=== PATIENT | male | born 1950 | race Caucasian/White ===

== ENCOUNTER → 2016-10-27 | Outpatient (CLI) | payer BC ==
[2016-10-27 09:41] LABS: BASO % 0.4 %; BASO ABS # 0.03 K/uL (0-0.2); COMPLETE YES; EOS % 6.4 %; HEMATOCRIT 49.9 % (42-52); IG% 0.3 %; LYMPH % 25.2 %; LYMPH ABS # 1.84 K/uL (1.2-3.4); MEAN CELL VOLUME 97.5 fL (80-100); MEAN CORPUSCULAR HEMOGLOBIN 33.6 pg (25-34); MEAN CORPUSCULAR HGB CONC 34.5 g/dl (32-36); MEAN PLATELET VOLUME 10.4 fL (7.4-10.4); MONO % 11.4 %; NEUT % 56.3 %; PLATELET COUNT 185 K/uL (130-400); RED BLOOD COUNT 5.12 M/uL (4.7-6.1)
[2016-10-27 10:21] LABS: BLOOD UREA NITROGEN 26 mg/dl (7-18); GLUCOSE 92 mg/dl (70-99)
[2016-10-27 10:22] LABS: ALT/SGPT 31 U/L (12-78); AST/SGOT 20 U/L (15-37); BUN/CREATININE RATIO 23.6 (10-20); CALCIUM 8.6 mg/dl (8.5-10.1); CARBON DIOXIDE 31 mmol/L (21-32); CHLORIDE 106 mmol/L (98-107); POTASSIUM 4.1 mmol/L (3.5-5.1); SODIUM 142 mmol/L (136-145)
== END | disposition home or self-care (01) ==
LOC: C.LAB 08:32
DX: M19.90 Unspecified osteoarthritis, unspecified site (principal); I10 Essential (primary) hypertension

== ENCOUNTER → 2017-05-07 | Outpatient (CLI) | payer BC ==
[2017-05-07 12:31] LABS: BLOOD UREA NITROGEN 25 mg/dl (7-18); CALCIUM 8.8 mg/dl (8.5-10.1); CARBON DIOXIDE 26 mmol/L (21-32); CREATININE 1.14 mg/dl (0.60-1.40); GLUCOSE 114 mg/dl (70-99); POTASSIUM 4.1 mmol/L (3.5-5.1); SODIUM 136 mmol/L (136-145)
--- NOTE | 2017-06-04 13:38 | CODING QUERY NO DIAGNOSIS ---
TREATMENT RENDERED WITHOUT A DIAGNOSIS To promote full compliance with coding requirements relating to patient care, physician participation is requested in all cases of pipe fitter apprentice uncertainty. Please assist us with providing a diagnosis/symptom for the test(s) below: A diagnosis/symptom was not documented on your Order. A valid diagnosis/symptom is required to bill all insurances. Please remember that we are unable to code a diagnosis of rule out, probable, possible, questionable, or suspected. Tests that require a diagnosis: * PARTIAL RENAL PROFILE DIAGNOSIS: * PSA DIAGNOSIS: Provider Signature: Date: Thank you Genesis M[facility] [employer] video Information Management Once completed, please kindly fax back to [phone] For questions please call [phone]
== END | disposition home or self-care (01) ==
LOC: C.LAB 09:40
DX: Z01.89 Encounter for other specified special examinations (principal)

== ENCOUNTER → 2017-06-29 | Outpatient (CLI) | payer OTHER ==
[2017-06-29 16:41] LABS: BLOOD UREA NITROGEN 23 mg/dl (7-18); CREATININE 1.06 mg/dl (0.60-1.40)
== END | disposition home or self-care (01) ==
LOC: C.LABBC 13:01
PROVIDERS: ATTEND Psychiatry & Neurology Neurology
DX: Z00.00 Encounter for general adult medical examination without abnormal findings (principal)

== ENCOUNTER → 2017-07-03 | Outpatient (CLI) | payer OTHER ==
[~2017-07-03] MED LIST: GADAVIST IV PRN
--- NOTE | 2017-07-03 12:17 | DIAGNOSTIC IMAGING REPORT ---
BRAIN COMBO CLINICAL HISTORY: CAVERNOUS HEMANGIOMA OF THE BRAIN lesion COMPARISON STUDY: 10/06/2014 TECHNIQUE: Utilizing a 1.5 Thea magnet and dedicated coil, multiplanar, multiecho imaging of the brain was performed pre and postcontrast administration. IV administration of 8 mL of Gadavist contrast was uneventful. FINDINGS: Study is similar compared to the prior study. 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 It is shown no significant change in size and signal character or enhancement characteristics. Signal characteristics of the cerebellar as well as cerebral hemispheres otherwise indicate minimal chronic small vessel change of aging. There is minimal age-related atrophy. 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 There is no significant postcontrast enhancement area in the ventricular system is midline. IMPRESSION: Stable exam with no change from the prior study. 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 The above report was generated using voice recognition software. It may contain grammatical, syntax or spelling errors. Electronically signed by: Eh Goncalves M.D. 07/03/2017 12:15 PM Dictated Date/Time: 07/03/2017 12:10 PM
== END | disposition home or self-care (01) ==
LOC: C.MRIBC 10:48
PROVIDERS: ATTEND Psychiatry & Neurology Neurology
DX: D18.02 Hemangioma of intracranial structures (principal)

== ENCOUNTER → 2017-07-03 | Outpatient (CLI) | payer OTHER ==
--- NOTE | 2017-07-03 15:10 | ECHOCARDIOGRAM REPORT ---
*NOTICE TO RECEIVING CONSTITUTION PARTY AGENCY This information is strictly Confidential and protected under [place] law. [place] law prohibits you from making any further disclosure of this information unless further disclosure is expressly permitted by the written consent of the person to whom it pertains or is authorized by law. A general authorization for the release of medical or other information is not sufficient for this purpose. Hospital accepts no responsibility if the information is made available to any other person, INCLUDING THE PATIENT. Interpretation Summary * Name: SIM GARCIA Study Date: 07/03/2017 01:42 PM BP: 124/80 mmHg * Patient Location: [facility] HR: 90 * : 1950 (M/d/yyyy) Gender: Male Height: 69 in * Age: 66 yrs Ethnicity: [place] Weight: 210 lb * Ordering Physician: Sim Molina * Referring Physician: Sim Molina D.O. * Performed By: Tasha Orlando RDCS * * Reason For Study: EXERTIONAL DYSPNEA, HX DILATED CARDIOMYOPATHY * BSA: 2.1 m2 * -- Conclusions -- * Left ventricular systolic function is normal. * No regional wall motion abnormalities noted. * Ejection Fraction = 55-60%. * Grade I diastolic dysfunction, (abnormal relaxation pattern). * There is mild mitral regurgitation. Procedure Details * A complete two-dimensional transthoracic echocardiogram was performed (2D, M-mode, Doppler and color flow Doppler). Left Ventricle * The left ventricle is normal in size. * There is normal left ventricular wall thickness. * Left ventricular systolic function is normal. * Ejection Fraction = 55-60%. * No regional wall motion abnormalities noted. Right Ventricle * The right ventricle is normal size. * The right ventricular systolic function is normal as assessed by tricuspid annular plane systolic excursion (TAPSE) (normal >1.5 cm). Atria * The left atrial size is normal. * Right atrial size is normal. * There is no evidence of atrial septal defect, but resolution does not allow assessment for a patent foramen ovale. Mitral Valve * The mitral valve anatomy is normal. * There is no mitral valve stenosis. * There is mild mitral regurgitation. Tricuspid Valve * The tricuspid valve anatomy is normal. * Tricuspid stenosis is absent. Aortic Valve * The aortic valve is normal in structure and function. * No hemodynamically significant valvular aortic stenosis. * No aortic regurgitation is present. Pulmonic Valve * The pulmonary valve is not well seen, but the Doppler examination is normal without significant regurgitation or stenosis. Great Vessels * The aortic root is normal size. * The pulmonary is not well visualized. Pericardium/Pleural * There is no pericardial effusion. Great Vessels * Normal inferior vena cava size and collapsability with sniff indicates a normal right atrial pressure of 3 mmHg Left Ventricular Diastolic Function * Grade I diastolic dysfunction, (abnormal relaxation pattern). MMode 2D Measurements and Calculations IVSd 1.1 cm IVSs 1.3 cm LVIDd 4.6 cm LVIDs 3.1 cm LVPWd 1.1 cm LVPWs 1.4 cm IVS/LVPW 0.99 FS 33.0 % EDV(Teich) 95.9 ml ESV(Teich) 36.7 ml EF(Teich) 61.7 % EDV(cubed) 95.5 ml ESV(cubed) 28.7 ml EF(cubed) 70.0 % % IVS thick 23.7 % % LVPW thick 26.7 % LV mass(C)d 170.7 grams LV mass(C)dI 81.0 grams/m\S\2 LV mass(C)s 132.4 grams LV mass(C)sI 62.8 grams/m\S\2 SV(Teich) 59.1 ml SI(Teich) 28.0 ml/m\S\2 SV(cubed) 66.8 ml SI(cubed) 31.7 ml/m\S\2 Ao root diam 3.4 cm Ao root area 9.0 cm\S\2 LA dimension 3.0 cm LA/Ao 0.87 LVAd ap4 28.4 cm\S\2 LVLd ap4 8.9 cm EDV(MOD-sp4) 75.6 ml EDV(sp4-el) 76.5 ml LVAs ap4 16.3 cm\S\2 LVLs ap4 7.5 cm ESV(MOD-sp4) 33.0 ml ESV(sp4-el) 30.3 ml EF(MOD-sp4) 56.4 % EF(sp4-el) 60.4 % LVAd ap2 31.0 cm\S\2 LVLd ap2 9.1 cm EDV(MOD-sp2) 85.0 ml EDV(sp2-el) 89.1 ml LVAs ap2 17.3 cm\S\2 LVLs ap2 7.2 cm ESV(MOD-sp2) 37.2 ml ESV(sp2-el) 35.3 ml EF(MOD-sp2) 56.3 % EF(sp2-el) 60.4 % LVLd %diff 2.3 % EDV(MOD-bp) 81.5 ml LVLs %diff -3.47 % ESV(MOD-bp) 35.3 ml EF(MOD-bp) 56.7 % SV(MOD-sp4) 42.6 ml SI(MOD-sp4) 20.2 ml/m\S\2 SV(MOD-sp2) 47.8 ml SI(MOD-sp2) 22.7 ml/m\S\2 SV(MOD-bp) 46.2 ml SI(MOD-bp) 21.9 ml/m\S\2 SV(sp4-el) 46.2 ml SI(sp4-el) 21.9 ml/m\S\2 SV(sp2-el) 53.8 ml SI(sp2-el) 25.5 ml/m\S\2 Doppler Measurements and Calculations MV E max july 67.9 cm/sec MV A max july 96.0 cm/sec MV E/A 0.71 MV dec time 0.21 sec Ao V2 max 134.8 cm/sec Ao max PG 7.3 mmHg Ao max PG (full) 3.9 mmHg LV V1 max PG 3.4 mmHg LV V1 max 92.2 cm/sec
== END | disposition home or self-care (01) ==
LOC: C.CPL 13:36
DX: R06.09 Other forms of dyspnea (principal); I42.0 Dilated cardiomyopathy; I34.0 Nonrheumatic mitral (valve) insufficiency

== ENCOUNTER 2022-01-31 05:09 | Observation (INO) ==
--- NOTE | 2021-12-21 13:36 | PAT Medication Instructions ---
Medication Instructions Date of Service December 21, 2021 Home Medications Medication Instructions Recorded Nigaht Kaur #1 ea 05/09/21 acetaminophen 500 mg capsule 1,000 mg PO TID Pain 30 days #180 06/20/21 caps amoxicillin 500 mg tablet 2,000 mg PO ONCE #4 tabs 10/18/21 amitriptyline 50 mg tablet 50 mg PO QPM levothyroxine 100 mcg capsule 100 mcg PO QAM lisinopril 20 mg tablet 20 mg PO QAM lysine 600 mg tablet 600 mg PO QAM omega-3 acid ethyl esters 1 gram capsule 1 cap PO QAM flaxseed oil 1,000 mg capsule 1,000 mg PO QAM glucosamine sulfate 500 mg tablet (Glucosamine) 500 mg PO QAM twxqnctblyje-fmoyqagc-yloaie tablet 1 tab PO QDL auniqtwzhj-ertgkpwym-fboirdu 30 mg-1 mg-20 mcg/mL intracavernosal soln 0.1 - 1 ml intra-cavernosal DAILY PRN Impotence, organic acetaminophen 500 mg capsule 1,000 mg PO TID Pain amoxicillin 500 mg tablet 2,000 mg PO ONCE Continue as directed amoxicillin 500 mg tablet 2,000 mg PO ONCE (prior to dental procedures) ASK your prescriber and surgeon amitriptyline 50 mg tablet 50 mg PO QPM STOP taking 2 weeks before surgery (or as soon as possible if surgery is within 2 weeks) lysine 600 mg tablet 600 mg PO QAM omega-3 acid ethyl esters 1 gram capsule 1 cap PO QAM flaxseed oil 1,000 mg capsule 1,000 mg PO QAM glucosamine sulfate 500 mg tablet (Glucosamine) 500 mg PO QAM rvvnzxiqpewy-gjeftzsj-uaulye tablet 1 tab PO QDL DO NOT take the morning of surgery lisinopril 20 mg tablet 20 mg PO QAM Take morning of surgery With a small sip of water, OTHERWISE NOTHING TO EAT OR DRINK AFTER MIDNIGHT: levothyroxine 100 mcg capsule 100 mcg PO QAM acetaminophen 500 mg capsule 1,000 mg PO TID Pain (if needed) Take evening before surgery acetaminophen 500 mg capsule 1,000 mg PO TID Pain (if needed) Other Notes Stop 72 hours prior to surgery (per Dr. Elizabeth recommendations) mtkjkztgqa-pibbiamlf-tomnvoe 30 mg-1 mg-20 mcg/mL intracavernosal soln 0.1 - 1 ml intra-cavernosal DAILY PRN Impotence, organic If you have any questions please call us at [phone] or [phone] or [phone] or [phone]
--- NOTE | 2021-12-23 09:45 | Anesthesiology Consultation ---
Date of Service December 23, 2021 Assessment & Plan (1) Encounter for pre-operative examination: - COVID screening: Per assessment on 12/23: No known COVID-19 positive contacts or current COVID-19 related symptoms. Patient vaccinated. Travel screen- returned from second home in [place] (often travels back and forth)- stayed at private residence 12/22. No large gatherings/groups. Uses PPE. Surgeon arranging preop COVID testing. Awaiting results. - S/P Left TKA (06/22/21): SAB x2 attempts (L3/4) + PNB at [facility] (see anesthesia progress note for further details). Done through outpatient joint pathway- did will postoperatively per pt. - Cavernous hemangioma: Left pontine cavernous hemangioma dx 2008. [place] [facility] [place]. Per last note (07/23/17): "Stable, incidental, left pontine cavernous hemangioma. No abnormalities on neurological examination. I am unable to sign off on scuba diving forms as previously requested. Patient comfortable with this issue. Additional or serial neuro imaging is not absolutely required. However, if the patient were to experience acute neurological symptoms such as weakness of the right leg, or cranial neuropathy, I would recommend obtaining an up-to-date brain MRI at that time. Cavernous hemangiomas can sometimes be treated with gamma knife. However, such treatments are reserved for symptomatic lesions." F/U PRN recommended. - Reviewed PMHX/anesthesia records with Dr. Hwang (including hx cavernous hemangioma). He feels that patient acceptable risk to proceed with surgery as scheduled (he states he would likely use SAB from his perspective but ultimate anesthetic type at anesthesiologist discretion AM DOS). He also feels patient acceptable for outpatient joint pathway (this was done without issue for patient's 05/2021 Left TKA). Chart Review Chart Review: Acceptable Risk for Surgery (pending evaluation AM DOS) and Patient seen in Pre Admission Testing Teaching & Discussion Pre-Anesthesia Teaching/Discussion Notes: Instructed NPO after midnight before surgery,except medications with 15 cc of water. Medication instructions provided according to the PAT guidelines. History Surgery Operation Date: 01/31/22 08:50 Proposed Procedures p Right Total Knee Arthroplasty - Leon Milton MD Height/Weight Height: 5 ft 9 in Weight: 94.3 kg Allergies Allergy/AdvReac Type Severity Reaction Status Date / Time No Known Allergies Allergy Unknown Verified 12/21/21 10:41 Medications Home Medications Medication Instructions Recorded Confirmed Last Taken amitriptyline 50 mg tablet 50 mg PO QPM 08/06/19 12/21/21 06/21/21 21:30 levothyroxine 100 mcg capsule 100 mcg PO QAM 08/06/19 12/21/21 06/22/21 05:15 lisinopril 20 mg tablet 20 mg PO QAM 08/06/19 12/21/21 06/21/21 08:00 lysine 600 mg tablet 600 mg PO QAM 09/17/19 12/21/21 06/21/21 08:00 omega-3 acid ethyl esters 1 gram 1 cap PO QAM 09/17/19 12/21/21 06/08/21 08:00 capsule flaxseed oil 1,000 mg capsule 1,000 mg PO QAM 04/18/21 12/21/21 06/08/21 08:00 glucosamine sulfate 500 mg tablet 500 mg PO QAM 04/18/21 12/21/21 06/08/21 08:00 (Glucosamine) aybgzmwfwepy-outpnngt-lbdwko tablet 1 tab PO QDL 04/18/21 12/21/21 06/08/21 08:00 goddcnhkmw-tpfiiqnkp-vuoabbd 30 0.1 - 1 ml intra-cavernosal DAILY 04/18/21 12/21/21 03/28/21 mg-1 mg-20 mcg/mL intracavernosal PRN Impotence, organic soln Wheeled Walker #1 ea 05/09/21 05/09/21 Unknown acetaminophen 500 mg capsule 1,000 mg PO TID Pain 30 days #180 06/20/21 12/21/21 Unknown caps amoxicillin 500 mg tablet 2,000 mg PO ONCE #4 tabs 10/18/21 12/21/21 Unknown Past Medical History Medical History (Updated 12/23/21 @ 14:10 by Jackie Crump) Bilateral primary osteoarthritis of knee Cavernous hemangioma Left pontine cavernous hemangioma dx 2008. F/U PR[facility] (2018) Grinding teeth + beach lifeguard History of prostate cancer Dx 2004 s/p prostatectomy Hx of sarcoidosis Age 20s- presented with peripheral edema, severe myalgia and arthralgias- Previously seen by Dr. Peppy annually in the past. Went into remission several years later, no recent issues Hypertension Controlled Hypothyroidism s/p thyroidectomy d/t hyperthyroidism Exercise / Class Metabolic Activity II 4-5 Yardwork/Stairs/Walk up hill Past Family History Family History Father Diabetes Heart disease Mother Diabetes Dementia Hypertension Other No family history of adverse response to anesthesia Past Surgical History Surgical History History of colonoscopy History of endoscopy History of lymph node excision S/P prostatectomy S/P thyroidectomy partial S/P vasectomy Status post left knee replacement Left TKA (06/22/21): SAB x2 attempts (L3/4) + PNB at [facility] (see anesthesia progress note for further details) Past Anesthesia History No Family Hx of Anesthesia Complications and Other (Post-op constipation) History of PONV No Hx of PONV and Hx of Motion Sickness (+ Boats) Social History Smoking Status: Never smoker Do You Dip or Chew Tobacco: No Hx Alcohol Use: Yes Alcohol type: wine alcohol intake frequency: a few times a week Hx Substance Use: No substance use type: does not use Review of Systems Patient denies chest pain, shortness of breath, dyspnea on exertion, fever, chills, cough, wheezing, palpitations. Physical Exam Vital Signs VITALS BP 128/80 P 95 TEMP WNL SP02 96%RA RESP 16 PHYSICAL Full cervical extension range of motion. Full TMJ range of motion. TMD 3 finger breaths Mallampati Score 2 Dentition: intact Lungs: clear throughout to auscultation Cardiac: regular rate and rhythm, no murmurs noted Spine: normal Carotid arteries: negative bruit Extremities: no edema Lab Results Anesthesia Preop Results Results Anesthesia Widget: WBC 5.93 K/ul (4.8-10.8) 12/23/21 Hgb 15.8 g/dl (14.0-18.0) 12/23/21 Hct 45.9 % (40.1-51.0) 12/23/21 Plt 183 K/uL (130-400) 12/23/21 Na 139 mmol/L (136-145) 12/23/21 K 4.4 mmol/L (3.5-5.1) 12/23/21 Cl 105 mmol/L (98-107) 12/23/21 CO2 27 mmol/L (21-32) 12/23/21 BUN 25 mg/dl (6-23) H 12/23/21 Creat 1.05 mg/dl (0.6-1.4) 12/23/21 Glucose Level 106 mg/dl (70-99(Fasting)) H 12/23/21 PT 10.9 Seconds (9.0-12.0) 12/23/21 PTT 24.8 Seconds (21.0-31.0) 12/23/21 INR 1.0 (0.9-1.1) 12/23/21 HA1c 6.3 % (4.5-5.6) H 12/23/21 Blood Type O Positive 12/23/21 Antibody Screen NEGATIVE 12/23/21 Testing Electrocardiogram Date: 05/09/21 Findings: + NSR @ (84) Chest X-Ray Date: 05/09/21 Findings: + NAD Echocardiogram Date: 07/03/17 EF 55-60%. No regional motion abnormality. Grade 1 diastolic dysfunction. Mild MR.
--- NOTE | 2022-01-26 17:27 | History and Physical Report ---
DATE OF ADMISSION: 01/31/2022 CHIEF COMPLAINT: Persistent right knee pain, discomfort and stiffness. HISTORY OF PRESENT ILLNESS: The patient is a 71-year-old gentleman, now a little over 7 months out f rom a left knee replacement, presents for treatment of his right knee. He has got a long history of knee pain and describes it has gotten worse over time. He has been through extensive conservative tr eatment in the past, which has become less successful. The left knee is doing well. He continues to be limited by right knee pain. It is global pain. The more he is up and on it, the more it hurts. He would like to have this fixed. He did his left knee as an outpatient and would like to do the sa me this time. PAST MEDICAL HISTORY: Significant for, 1. Hypertension. 2. Hypothyroidism. 3. Occasional irregular heartbeat with a negative workup. 4. Prostate cancer. PAST SURGICAL HISTORY: Includes, 1. Sarcoid surgery. 2. Thyroid removal. 3. Prostate removal. 4. Left knee replacement done on 06/22/2021. ALLERGIES: None. CURRENT MEDICATIONS: Include, 1. Amitriptyline. 2. Glucosamine. 3. Levothyroxine. 4. Lisinopril. 5. Lysine. 6. Meloxicam. 7. Multivitamin. 8. Naproxen. 9. Gateway-3. 10. Flaxseed oil. SOCIAL HISTORY: A 71-year-old male. He is single and lives alone. He has an Airbnb that he is plan francis to recovery in. FAMILY HISTORY: Noncontributory. REVIEW OF SYSTEMS: Negative for diabetes. No history of DVT or PE. Apparently has had some irregul ar heartbeats, but a negative cardiac workup. No bleeding problems. PHYSICAL EXAMINATION: GENERAL: Shows a pleasant middle-aged male. Looks to be in good health. HEENT: Benign. NECK: Supple. No lymphadenopathy. LUNGS: Clear to auscultation. HEART: Regular rate and rhythm. ABDOMEN: Soft, nontender, nondistended. EXTREMITIES: Grossly neurovascularly intact except as follows: Examination of the right knee reveal s a patient who ambulates with a slight bit of a limp. He has got varus alignment to his knee, a bit of a varus thrust with weightbearing. He is tender medially with some bony hypertrophy. Range of m otion is 5-120. No instability. Examination of the left knee reveals a well-healed incision. Range of motion is 0-120. Good straight leg raise. Anatomic alignment. X-RAYS: Four view series of his right knee were reviewed. It shows advanced right knee DJD. He has got complete loss of his medial joint space. He has got subchondral sclerosis. He has got cystic c hanges, particularly on the medial side of his knee. The left knee replacement looks to be in good p osition. ASSESSMENT: A 71-year-old gentleman 7+ months out from a left knee replacement, with advanced right knee arthritis. He has failed conservative treatment. He would like to proceed with right knee repl acement. He does have some other additional comorbidities including hypertension, hypothyroidism and prostate cancer, but did well as an outpatient the last time. PLAN: We will proceed with right knee replacement. The risks and benefits of this procedure were ex plained to the patient and include but not limited to DVT, PE, , infection, neurological injury, vascular injury, bleeding problem, pain, limited range of motion, stiffness, failure to relieve his symptoms, etc. The patient understands and desires to proceed. Informed consent was obtained. He does have local Airbnb in [place], I believe, and he is going to recover there. His daughter is going to come and assist in his care. He is hoping to do this as an outpatient. Job ID: [id number]
[2022-01-31] MEDS ORDERED: BUPIVACAINE LIPOSOME/PF 266 MG, BUPIVACAINE/EPINEPHRINE 50 ML, SODIUM CHLORIDE 0.9% 30 ... INFIL SCH (06:00)
[2022-01-31] MEDS ORDERED: CeleBREX 200 MG CAP PO SCH (06:00)
[2022-01-31] MEDS ORDERED: Scopolamine 1 MG TDSY TD SCH (06:00)
[2022-01-31] MEDS ORDERED: ceFAZolin 2000MG 2,000 MG/15 ML SYR IV SCH (06:00)
[2022-01-31] MEDS ORDERED: FAMOTIDINE 20 MG TAB PO SCH (06:00)
[2022-01-31] MEDS ORDERED: ACETAMINOPHEN 500 MG TAB PO SCH (06:00)
[2022-01-31] MEDS ORDERED: TRANEXAMIC ACID 1,000 MG **IV Intra-op IV SCH (06:00)
[2022-01-31] MEDS ORDERED: LR 60ML/HR IV SCH (06:00)
[2022-01-31] MEDS ORDERED: LR 15ML/HR IV SCH (06:00)
[2022-01-31] MEDS ORDERED: METOCLOPRAMIDE HCL 10 MG TABLET PO SCH (06:00)
[2022-01-31] MEDS ORDERED: MIDAZOLAM HCL 1 MG/ML 2ML VIAL ONE (06:24)
[2022-01-31] MEDS ORDERED: MEPIVACAINE HCL 1.5% 30 ML VIAL ONE (06:24)
[2022-01-31] MEDS ORDERED: EPINEPHrine INJ 1 MG/ML AMP ONE (06:24)
[2022-01-31] MEDS ORDERED: ROPIVACAINE 0.5% 5 MG/ML 30 ML VIAL ONE (06:25)
[2022-01-31] MEDS ORDERED: BUPIVACAINE/EPINEPHRINE 0.25% 1:200,000 30 ML VIAL ONE (06:35)
[2022-01-31] MEDS ORDERED: BUPIVACAINE LIPOSOME 1.3% 266 MG/20 ML VIAL ONE (06:35)
[2022-01-31] MEDS ORDERED: SODIUM CHLORIDE 0.9% PF 50 ML VIAL ONE (06:35)
--- NOTE | 2022-01-31 06:50 | History & Physical Bridge Note ---
Date of Service January 31, 2022 History & Physical Bridge Note I have examined the patient, reviewed the History & Physical and in the interval since the performance of the History & Physical I have noted the following changes of clinical significance: no changes noted
[2022-01-31] MEDS ORDERED: KETOROLAC 30 MG/ML VIAL ONE (07:10)
[2022-01-31] MEDS ORDERED: PROPOFOL IV EMULSION 10 MG/ML 20 ML VIAL IV ONE (07:10)
[2022-01-31] MEDS ORDERED: ONDANSETRON INJ 2 MG/ML 2 ML VIAL ONE (07:11)
[2022-01-31] MEDS ORDERED: PHENYLEPHRINE HCL 10 MG/ML VIAL ONE (07:28)
[2022-01-31] MEDS ORDERED: PHENYLEPHRINE 100MCG/ML 5ML SYR ONE (07:28)
[2022-01-31] MEDS ORDERED: PROMETHAZINE HCL 12.5 MG in SODIUM CHLORIDE 0.9% 50 ML IV PRN (07:36)
[2022-01-31] MEDS ORDERED: LABETALOL HCL IV 5 MG/ML 20ML IV PRN (07:36)
[2022-01-31] MEDS ORDERED: ONDANSETRON INJ 2 MG/ML 2 ML VIAL IV PRN (07:36)
[2022-01-31] MEDS ORDERED: NALOXONE HCL 0.4 MG/1 ML VIAL/CARP IV PRN ×2 (07:36→17:48)
[2022-01-31] MEDS ORDERED: fentaNYL citrate 100 MCG/2 ML VIAL IV PRN (07:36)
[2022-01-31] MEDS ORDERED: HYDROmorphone INJ 1 MG/ML SYRINGE IV PRN (07:36)
[2022-01-31] MEDS ORDERED: FLUMAZENIL 0.1 MG/1 ML 10 ML VIAL IV PRN (07:36)
[2022-01-31] MEDS ORDERED: oxyCODONE/ACETAMINOPHEN 5mg/325mg TAB PO PRN (08:42)
--- NOTE | 2022-01-31 08:54 | Operative Report ---
PG Post Operative Report Pre & Post Diagnosis Operation Date: 01/31/22 07:00 Pre-Op Diagnosis: Right Knee Advanced Degenerative Joint Disease Post-Op Diagnosis: Right Knee Advanced Degenerative Joint Disease I identified the patient and participated in the time-out.: Yes Procedure Operation Date: 01/31/22 07:00 Actual Procedures p Right Total Knee Arthroplasty(Right) - Leon Milton MD Surgeon Leon Milton MD [employer] Worker Torrey Villarreal PA-C Estimated Blood Loss 50 Findings Consistent with Post-Op Diagnosis Operative findings were advanced right knee DJD. Extensive grade 4 [id number] disease and eburnation of the entire medial compartment. Fixed varus deformity to his knee. His ACL was intact but he had posterior medial wear consistent with ACL insufficiency. Moderate-sized joint effusion. Very varus proximal tibia. Fluids 1600 cc Specimens Right knee sent for pathology Drains None Anesthesia Type Spinal MAC Complications none Disposition Accompanied Patient To Recovery: No Indications Patient is a 71-year-old gentleman said a long history of bilateral knee pain discomfort describes gotten worse over the past several years. He underwent a left knee replacement back in May and is done well from this. He is recovered nicely but limited by right knee pain. X-rays show advanced knee arthritis. He elected proceed with surgical management. Description of Procedure Operative implants consist of: 1 Biomet Vanguard size 67.5 right posterior stabilized femoral component. 2. Biomet size 79 tibial tray. 3. 10 mm posterior stabilized polyethylene insert. 4. 31 x 8 all Paller patella. The patient was taken to the operating, identified, placed on the operating table supine position protectors were properly padded. IV antibiotics tried by anesthesia team. A spinal anesthetic and been implemented holding area along with an abductor canal block. A right thigh tent was then placed. The right lower extremities and prepped and draped in usual sterile fashion. The right leg was elevated exsanguinated with use of an Esmarch in terms playset 300 mmHg. An anterior approach of the right knee was then performed to longitudinal incision centered over the patella. Sharp dissection Through subcutaneous tissues down to the extensor mechanism. A medial parapatellar arthrotomy incision was made. Some subperiosteal dissection was carried out medially. The fat pad was resected from Neath patella tendon. Lateral patellofemoral ligament was released. Patella subluxated laterally and the knee was flexed. The osteophytes were taken off distal femur. The ACL and PCL were then released in the distal femur the tibia subluxated anteriorly. The external treatment line jig was then placed in the interface the tibia and adjusted 14 mm medially. Proximal tibial cut was made essentially flush with the most deficient aspect of the posterior medial tibial plateau. The tibia was then sized to a size 79. Some osteophytes taken off medial and posterior medially. Attention drawn the femur. The distal femur was entered with a sharp drill followed by the intramedullary brianna. The IM canal was suction. A right 6 degree valgus cutting guide was placed. This femoral cutting block was pinned in place. Distal femoral cut was made to take an additional 3 mm bone off distal femur. The femur was then sized to a size 67.5. The AP cutting block was pinned parallel to the epicondylar axis which was 4 degrees of external rotation. Anterior cut, anterior chamfer, posterior cut, posterior chamfer cuts were made. The box cutting guide was placed in just slight lateral and the box cut was made. The knee was flexed. The remnants of the medial and lateral menisci were excised. The osteophytes were taken off the posterior aspect the femur. Trial femoral component was placed. The tibial tray was pinned in maximum external rotation and the drill and stem punch used to create the defect in the proximal tibia for the tibial tray. Knee was then trialed and 10 mm insert fit most appropriately. Attention drawn the patella. The patella was cleaned of all soft tissues. Patella thickness measured 23 mm in thickness was cut down to 15. Was sized to a size 31 patella. The lug holes were drilled for the 31 patella. The lateral osteophyte was removed. Patella button was placed. Knee was taken through range of motion patella tracked nicely with no thumbs test. Attention drawn to placing permanent components. Nupathe all trial components were removed. Bone plug was placed in the distal femur limit blood loss. A double batch Palacos G cement was mixed. A Biomet Vanguard size 67.5 right posterior stabilized femoral component, size 79 tibial tray, a 10 mm posterior stabilized polyethylene insert, and a 31 x 8 all Paller patella then cemented in place. Knee was brought out in full extension total cement hardened. Final cement check was then performed. Pericapsular tissues were injected with total of 100 cc of combination of 20 cc of Exparel, 30 cc normal saline, 50 cc of quarter percent Marcaine with epinephrine. Patient did receive 1 g tranexamic acid. The tourniquet was let down for turn time 58 minutes. Hemostasis reduced electrocautery. Extensor mechanism then closed with combination 1 PDS suture #1 Vicryl suture in a [id number] fashion. Extensor mechanism checked found to be intact. The subcutaneous tissue was then closed with 2 Dexon suture in buried interrupted fashion skin was closed skin thaddeus. Leg was then cleaned and dried a sterile dressing was Xeroform, 4 x 4's, sterile cast padding, Isidro bandage were applied. Patient then transferred to the recovery room in stable condition. Patient tolerated procedure well and there were no complications. Torrey Villarreal, my physician assistant professor of archaeology, was present for the entire procedure. His assistance was essential and required for appropriate patient positioning, prepping and draping, surgical exposure, performing the technical details of the operation, placement the implants, closure of the wound, and placement of the sterile bandage. I attest to the content of the Intraoperative Record and any orders documented therein. Any exceptions are noted below.
--- NOTE | 2022-01-31 09:09 | XRay Report ---
RIGHT KNEE 2 VIEWS History: Right total knee arthroplasty. Degenerative arthritis. Postop. FINDINGS: The patient is status post a right total knee arthroplasty. The hardware is intact. No frac ture or dislocation. Skin thaddeus are in place. IMPRESSION: Right total knee arthroplasty. No evidence for hardware complication. ACT 112: Negative or not required by law. Electronically signed by: Camden Gonzalez M.D. 01/31/2022 9:06 AM
--- NOTE | 2022-01-31 09:11 | Anesthesiology Progress Note ---
Date of Service January 31, 2022 Anesthesia Post Procedure Vital Signs Vital Signs: Temp Pulse Pulse Resp BP Pulse Ox O2 Del Method 01/31/22 09:05 36.3 C L 102 H 14 129/72 97 Room Air 01/31/22 08:55 100 H 21 102/56 L 98 Oxymask 01/31/22 08:47 36.7 C 101 H 14 122/66 98 Oxymask 01/31/22 05:43 37.2 C 94 H 18 138/88 98 Room Air O2 Flow Rate 01/31/22 09:05 01/31/22 08:55 9 01/31/22 08:47 9 01/31/22 05:43 Pain Intensity Right Knee: Pain Intensity: 0 Transfer of Care Handoff Completed per policy Notes Mental Status: alert / awake / arousable Patient Amnestic to Procedure: Yes Nausea / Vomiting: adequately controlled Pain: adequately controlled Airway Patency, RR, SpO2: stable & adequate BP & HR: stable & adequate Hydration State: stable & adequate Neuraxial Anesthesia: was administered and sensory block is resolving Anesthetic Complications: no major complications apparent
[2022-01-31] MEDS ORDERED: LIDOCAINE 2% MPF LOCAL 5 ML VIAL INFIL ONE (09:19)
[2022-01-31] MEDS ORDERED: ceFAZolin 2000MG 2,000 MG/15 ML SYR IV ONE (10:00)
[2022-01-31] MEDS ORDERED: HYDROmorphone INJ 0.5 MG/0.5 ML SYR IV PRN (17:48)
[2022-01-31] MEDS ORDERED: MAGNESIUM HYDROXIDE SUSP 30 ML UDC PO PRN (17:48)
[2022-01-31] MEDS ORDERED: diphenhydrAMINE Capsule 25 MG CAP PO PRN (17:48)
[2022-01-31] MEDS ORDERED: oxyCODONE HCL IR 5 MG TAB (IMMEDIATE RELEASE) PO PRN (17:48)
[2022-01-31] MEDS ORDERED: ONDANSETRON 4 MG OD TAB PO PRN (18:05)
[2022-01-31] MEDS: Scopolamine CHECK PATCH PLACEMENT SCH ×2 (18:08→23:46)
[2022-01-31] MEDS: SODIUM CHLORIDE 0.9% 1000ML 1,000 ML IV SCH (18:13)
[2022-01-31] MEDS: KETOROLAC TROMETHAMINE 15 MG/ML VIAL IV SCH (18:45)
[2022-01-31] MEDS: ceFAZolin 2000MG 2,000 MG/15 ML SYR IV SCH (19:58)
[2022-01-31] MEDS: ACETAMINOPHEN 500 MG TAB PO SCH (20:32)
[2022-01-31] MEDS: ASPIRIN 81 MG ECTAB PO SCH (20:33)
[2022-01-31] MEDS: DOCUSATE SODIUM/SENNA 50/8.6MG TAB PO SCH (20:33)
[2022-01-31] MEDS ORDERED: AMITRIPTYLINE HCL 50 MG TAB PO SCH (21:00)
[2022-02-01] MEDS: KETOROLAC TROMETHAMINE 15 MG/ML VIAL IV SCH ×2 (00:23→06:04)
[2022-02-01] MEDS: ceFAZolin 2000MG 2,000 MG/15 ML SYR IV SCH (03:12)
[2022-02-01] MEDS: SODIUM CHLORIDE 0.9% 1000ML 1,000 ML IV SCH (03:25)
[2022-02-01] MEDS ORDERED: LEVOTHYROXINE SODIUM 100 MCG TABLET PO SCH (06:30)
[2022-02-01 07:07] LABS: Hematocrit (blood only) 38.9 % (40.1-51.0); Hemoglobin 13.4 g/dl (14.0-18.0); Mean Corpuscular Hemoglobin 33.2 pg (25.0-34.0); Mean Corpuscular Hgb Conc 34.4 g/dL (32.0-36.0); Mean Corpuscular Volume 96.3 fL (80.0-100.0); Mean Platelet Volume 10.6 fL (9.4-12.4); Platelet Count 155 K/uL (130-400); RDW Coefficient of Variation 12.1 % (11.5-14.5); RDW Standard Deviation 42.5 fL (36.4-46.3); Red Blood Count 4.04 M/uL (4.63-6.08); White Blood Count 11.54 K/ul (4.8-10.8)
[2022-02-01 07:27] LABS: BUN Creatinine Ratio 22.4 (10-20); Calcium 8.5 mg/dl (8.5-10.1); Est GFR (African American) 81.7 ml/min; Est GFR (Non-African American) 70.5 ml/min; Potassium 4.2 mmol/L (3.5-5.1)
[2022-02-01] MEDS: Scopolamine CHECK PATCH PLACEMENT SCH (07:51)
[2022-02-01] MEDS: DOCUSATE SODIUM/SENNA 50/8.6MG TAB PO SCH (08:43)
[2022-02-01] MEDS: ASPIRIN 81 MG ECTAB PO SCH (08:43)
[2022-02-01] MEDS: ACETAMINOPHEN 500 MG TAB PO SCH (08:47)
[2022-02-01] MEDS ORDERED: LYSINE 600 MG PO SCH (09:00)
[2022-02-01] MEDS ORDERED: lisinopril 20 MG TAB PO SCH (09:00)
[2022-02-01] MEDS ORDERED: POLYETHYLENE (MIRALAX) 17 GM PACK PO SCH (09:00)
[2022-02-01] MEDS ORDERED: NON-FORMULARY MEDICATION (Flaxseed Oil 1,000 mg Capsule) PO SCH (09:00)
[2022-02-01] MEDS ORDERED: TAMSULOSIN HCL 0.4 MG CAP PO SCH (09:00)
[2022-02-01] MEDS ORDERED: CEROVITE ADV FORMULA TAB PO SCH (11:30)
--- NOTE | 2022-02-01 11:45 | Progress Notes ---
DATE OF SERVICE: 02/01/2022. SUBJECTIVE: A 71-year-old gentleman postoperative day 1 from a right knee replacement. He is doing pretty well. He was planning on going home yesterday, but failed physical therapy. Has not really t ried too much walking yet this morning. His pain is very manageable. No chest pain or shortness of breath. Not feeling dizzy or lightheaded. OBJECTIVE: VITAL SIGNS: Temperature 36.8. Vital signs are stable. GENERAL: Shows a pleasant middle-aged male. He is sitting up in bed this morning, eating his breakf ast. Looks comfortable. LUNGS: Clear to auscultation. HEART: Regular rate and rhythm. ABDOMEN: Soft, nontender, nondistended. EXTREMITIES: Grossly neurovascularly intact except as follows. Examination of the right leg reveals the leg to be well aligned. Dressing is clean, dry and intact. He can dorsiflex and plantarflex his foot appropriately. He is neurologically intact. Still strugg ling to do a straight leg raise. LABORATORY DATA: Hemoglobin 13.4. Hematocrit 38.9. Electrolytes are stable. ASSESSMENT: A 71-year-old gentleman postoperative day 1 from right knee replacement, doing pretty we ll. Pain is controlled. He is neurologically intact. Quad function still weak, which is not unexpe cted. PLAN: 1. DVT prophylaxis includes thigh-high TEDs, SCDs, and aspirin twice a day. 2. PT, OT, weightbear as tolerated. Right total knee protocol. 3. Disposition: Plan to discharge to home with some home health. He is going to be staying locally in and have outpatient therapy. His daughter is going to assist in his care. Job ID: [id number]
--- NOTE | 2022-02-04 14:35 | Discharge Summary ---
Date of Service February 04, 2022 Discharge Data Procedures Performed Operation Date: 01/31/22 07:00 Actual Procedures p Right Total Knee Arthroplasty(Right) - Leon Milton MD Hospital Course (1) Status post total right knee replacement: This is a 71 year old patient admitted on 01/31/22 and underwent total knee arthroplasty. He tolerated the procedure well and there were no complications. He did not do well with therapy initially and was admitted. Transferred to the PACU post op and later to the orthopedic floor for further care. He was given ancef for antibiotic prophylaxis. He was also given SONALI stockings, SCDs, and aspirin for DVT prophylaxis. Hemoglobin, hematocrit, and vital signs were monitored during his hospital stay and remained stable. Did not require any blood transfusions. There were no complications during his hospital stay. By post op day #1 the patient was tolerating a regular diet, pain was reasonably controlled with oral pain medicine, and he was participating in physical therapy. On post op day #1 the patient was discharged home and set up with home health care. He was given printed discharge instructions including prescriptions for extra strength tylenol, aspirin, toradol, zofran, flomax, senokot, and oxycodone. Continue physical therapy, weight bearing as tolerated. Continue SONALI stockings. Follow up approximately 2 weeks post op or sooner if there are problems or concerns. Coding Level of Care Code None Diagnoses Status post total right knee replacement Z96.651
== END 2022-02-01 12:13 | disposition home health service (06) ==
LOC: 3N 05:09 → ASU 05:09